=== PATIENT | female | born 1960 | race Caucasian/White ===

== ENCOUNTER → 2017-05-02 | Outpatient (CLI) | payer BC ==
[~2017-05-02] MED LIST: CIPRO PO; DICYCLOMINE HCL20 MG PO; FLAGYL PO; FLOMAX0.4 M1 PO; HYDROCODON-ACE1 EAC7 PO; LEVAQUIN PO; NORCO1 TAB 10/3 DOB; PHENERGAN25 M1 PO; PRILOSEC40 MG PO; VOLTAREN50 MG PO; ZOFRAN ODT4 MG SL
--- NOTE | ~2017-05-02 | US128 ---
[id number] [facility]. [facility] [address]. [place], [place] [address] [id number] MR#: [id number] Acc #: [id number] NAME: EVERT DYSON : 1960 SEX: F STUDY DATE/TIME: 05/02/2017 13:26 UNIT: [facility]US ROOM: STUDY DESCRIPTION: Thyroid Attending Physician: Ajay Murphy M.D. Referring Physician: Ajay Murphy M.D. Ordering Physician: Ajay Murphy M.D. Primary Care Physician: Clarissa Keane M.D. MEDICAL IMAGING REPORT This report is preliminary unless electronic signature is present EXAM Thyroid ultrasound, 05/02/2017. COMPARISON None CLINICAL HISTORY Recent carotid Doppler reportedly identified thyroid nodule. Routine followup. No symptoms. FINDINGS In the right lobe of the gland, there is a small mixed cystic and solid 9 x 7 x 8 mm upper pole nodule, a small adjacent benign-appearing cystic lesion measuring 5 x 4 x 6 mm, and a dominant mostly cystic lesion measuring 2.2 x 1.1 x 1.6 cm. It does contain a small posterior mural nodule. The left lobe of the gland contains a hypoechoic mid to lower pole inferomedial 6 x 4 x 6 mm nodule but no other lesions are seen. IMPRESSION Several subcentimeter thyroid lesions are seen. The dominant lesion on the right is almost purely cystic though it does have a small mural nodule. It measures 2.2 x 1.1 x 1.6 cm. The cyst could be aspirated. It is unlikely to yield a diagnostic specimen given its nearly purely cystic appearance. There are no older exams for comparison. Dictated by... Leland Blackman M.D. THIS IS AN ELECTRONICALLY VERIFIED REPORT Leland Blackman M.D. at 05/03/2017 4:09 PM AREN/domi TD: 05/03/2017 10:24 JOB #: [id number] MEDICAL IMAGING REPORT Page 1 of 1 COPY
== END | disposition home or self-care (01) ==
LOC: CGUS 13:05
DX: E07.89 Other specified disorders of thyroid (principal)
CPT/HCPCS: 76536